=== PATIENT | female | born 1985 | race Caucasian/White ===

== ENCOUNTER 2021-01-29 16:51 | Outpatient (CLI) | payer MEDICAID ==
[~2021-01-29] VITALS: Ht 160 cm; Wt 83.2 kg
--- NOTE | 2021-01-29 17:05 | NUR ---
PT ARRIVES TO FLOOR WITH SIGNIFICANT OTHER, 5 PARA 3, 35 WEEKS GESTATION, REPORTS GUSH OF FLUID FOLLOWING INTERCOURSE, DENIES CONTRACTIONS, DENIES DECREASE IN MOVEMENT, DENIES BLEEDING, EFM APPLIED, TRACING WELL, VSS, ASSESSMENT COMPLETED, 1715: SVE CL/THICK/HIGH, AMNITEST NEGATIVE, NO FLUID NOTED WHEN PRESSURE APPLIED TO HEAD 1720: UPDATED ON PATIENT, ORDER RECIEVED, SEE PHYS.NOTIFICATION 1731: POC REVIEWED WITH PT, EFM OFF, DC INSTRUCTIONS REVIEWED 1745: PT AMBULATORY OFF UNIT WITH S.O
[2021-01-29 17:31] VITALS: BP 110/70; PULSE 71; TEMP 98.6
== END 2021-01-29 17:45 | disposition home or self-care (01) ==
LOC: LDRO 16:51
DX: O34.63 Maternal care for abnormality of vagina, third trimester (principal); Z3A.35 35 weeks gestation of pregnancy